=== PATIENT | male | born 1985 | race Caucasian/White ===

== ENCOUNTER → 2020-04-07 15:19 | Outpatient (BNVA) | payer OTHER, SELFPAY | DX: Z11.59 Encounter for screening for other viral diseases (principal) | CPT/HCPCS: 87635 ==

== ENCOUNTER 2020-11-19 01:48 | Emergency (ER) | payer OTHER, SELFPAY ==
[2020-11-19 02:08] VITALS: BP 161/103; PULSE 90; RESP 16; TEMP 36.9; O2SAT 97; BMI 31.5
--- NOTE | 2020-11-19 02:26 | W.ED.ABDPA2 ---
HPI - Abdominal Pain General: Chief Complaint: Abdominal Pain Stated Complaint: ab pain, back pain Time Seen by Provider: 11/19/20 02:03 Source: patient Mode of arrival: ambulatory Limitations: no limitations History of Present Illness: HPI narrative: 34-year-old male states he had right upper quadrant pain over the last day. He states its been constant nature and is much worse with palpation. States seems to be worse with food as well. States the pain radiates to his shoulder blade. He denies any history of any gallbladder issues. He has no history of any surgeries. He denies any fever. Has had some nausea no vomiting. Denies any diarrhea. MD elicited complaint: abdominal pain Associated Symptoms: Reports nausea; Denies chills, dysuria, fever(s) and vomiting Review of Systems Const: Denies: fever(s), chills, body aches or change in appetite Eyes: Denies: blurry vision or eye discomfort ENMT: Denies: throat pain or dental pain Card: Denies: chest pain Resp: Denies: dyspnea GI: Reports: abdominal pain and nausea; Denies: vomiting : Denies: dysuria Musc: Denies: neck pain or back pain Skin/Breast: Denies: rash Neuro: Denies: headache(s) Psych: Denies: depression Max/Lymph: Denies: easy bruising All/Imm: Denies: urticaria PFSH ED PFSH: Medical History (Updated 11/19/20 @ 04:13 by Orion Parikh MD) Anxiety Depression Hypertension, essential, benign Obesity (BMI 30-39.9) PTSD (post-traumatic stress disorder) Surgical History (Updated 10/26/20 @ 09:26 by Mushtaq Mckeon MD) No pertinent past surgical history Family History (Updated 10/26/20 @ 09:05 by Marisa Nelson LPN) Grandfather Lung disease Cancer Stroke Mother Diabetes Other CAD (coronary artery disease) Dementia Hypertension Social History (Updated 10/26/20 @ 09:05 by Marisa Nelson LPN) Smoking and tobacco status: current every day smoker cigarettes Packs smoked per day: 1 Years cigarettes smoked: 15 Alcohol intake: current Alcohol intake frequency: holidays/special occasions only Marital status: Number of children: 1 Number of grandchildren: 0 Current occupational status: employed Physical Exam Const: COMMON NORMALS: no acute distress, patient oriented x3 and healthy appearing HENMT: COMMON NORMALS: normocephalic and atraumatic HEAD & SCALP: normocephalic and atraumatic Eye: COMMON NORMALS: Equal, round and reactive pupils present and EOMs intact bilaterally PUPIL: Yes Equal, round and reactive pupils present Neck/C-Spine: COMMON NORMALS: full ROM and supple Chest: COMMONS NORMALS: normal inspection of the chest and normal palpation of entire chest wall Resp: COMMON NORMALS: normal respiratory effort, No retractions, No use of accessory muscles and clear to auscultation bilaterally AUSCULTATION: clear to auscultation bilaterally Cardio: COMMON NORMALS: regular rate, regular rhythm and No murmurs present (Cardio) RATE: regular rate RHYTHM: regular rhythm GI: COMMON NORMALS: Normal to inspection, nondistended, normoactive bowel sounds present, Soft to palpation and no masses PALPATION: Yes Soft to palpation and Yes Tenderness to palpation present (GI) Details: RUQ Extremity: COMMON NORMALS: normal to inspection and full ROM Neuro: COMMON NORMALS: patient oriented x3, moves all extremities and no focal motor deficits Psych: COMMON NORMALS: mental status grossly normal, Normal thought process present and cooperative THOUGHT PROCESS: Normal thought process present Skin: COMMON NORMALS: no rashes or lesions noted and no wounds GENERAL SKIN EXAM: no rashes or lesions noted Course Vital Signs: Vital signs: Vital Signs Temperature 98.4 F 11/19/20 02:08 Pulse Rate 83 11/19/20 04:07 Respiratory Rate 16 11/19/20 04:07 Blood Pressure 135/99 11/19/20 04:07 Pulse Oximetry 97 11/19/20 04:07 MDM - Abdominal Pain MDM Narrative: Medical decision making narrative: Patient presents here with abdominal pain. Could be gastritis. His ultrasound of his gallbladder and CT of his abdomen are all normal. Blood work is all normal as well. He is stable for discharge and follow-up with PCP and return if worsening. Lab Data: Labs: Lab Results 11/19/20 11/19/20 Range/Units 02:35 02:35 WBC 14.5 H (4.0-10.0) 10^3/ uL RBC 5.32 H (4.1-5.3) 10^6/u L Hgb 16.3 (11.7-16.6) g/dL Hct 49.1 (42.0-52.0) % MCV 92.3 (80-94) fL MCH 30.6 (28.0-34.0) pg MCHC 33.2 (30.0-36.0) g/dL RDW 12.6 (12.1-15.1) % Plt Count 230 (130-400) 10^3/c mm MPV 10.8 H (7.4-10.4) fL Neut % (Auto) 60.7 % Lymph % (Auto) 29.2 % [place] % (Auto) 7.3 % Eos % (Auto) 1.7 % Baso % (Auto) 0.6 % Neut # (Auto) 8.78 H (1.8-7.7) 10^3/u L Lymph # (Auto) 4.2 (0.8-4.8) 10^3/u L [place] # (Auto) 1.1 H (0.2-0.9) 10^3/u L Eos # (Auto) 0.3 (0.0-0.8) 10^3/u L Baso # (Auto) 0.1 (0.0-0.1) 10^3/u L Nucleated RBC % (a uto) 0 % Nucleated RBCs # 0.0 /100WBC Sodium 138 (136-145) mmol/L Potassium 4.3 (3.5-5.1) mmol/L Chloride 102 (98-107) mmol/L Carbon Dioxide 25 (22-29) mmol/L Anion Gap 15.3 (5-19) BUN 6 (6-20) mg/dL Creatinine 0.7 (0.7-1.2) mg/dL GFR Calculation 129.1 (90-130) mL/min Glucose 131 H (65-115) mg/dL Calculated Osmolal ity 285 (285-295) mOsm/k g Calcium 9.6 (8.5-10.5) mg/dL Total Bilirubin 0.3 (0.15-1.2) mg/dL AST 21 (0-40) U/L ALT 23 (0-41) U/L Alkaline Phosphata se 117 (40-130) IU/L Total Protein 7.1 (6.6-8.7) g/dL Albumin 4.6 (3.5-5.2) g/dL Globulin 2.5 (1.3-4.6) g/dL Lipase 72 H (13-60) U/L Imaging Data ^: CT Abd/Pel: Radiologist's impression: [address] [place] [address] CT Scan Report Signed Patient: Franko Iqbal Unit #: [id number] : 1985 Age/Sex: 34 / M ADM Date: 11/19/20 Loc: ER Room/Bed: Attending Dr: Ordering Provider/Ordering MD: Orion Parikh MD Date of Service: 11/19/20 Procedure(s): CT abdomen pelvis w con* [id number] Accession Number(s): [id number] Report Number: [id number] PROCEDURE INFORMATION: Exam: CT Abdomen And Pelvis With Contrast Exam date and time: 11/19/2020 2:50 AM Age: 34 years old Clinical indication: Abdominal pain; Epigastric; Additional info: Abd pain TECHNIQUE: Imaging protocol: Computed tomography of the abdomen and pelvis with contrast. Radiation optimization: All CT scans at this facility use at least one of these dose optimization techniques: automated exposure control; mA and/or kV adjustment per patient size (includes targeted exams where dose is matched to clinical indication); or iterative reconstruction. Contrast material: OMNI 300; Contrast volume: 95 ml; Contrast route: INTRAVENOUS (IV); COMPARISON: US gall bladder [id number] 11/19/2020 2:34 AM RADIATION DOSE METRICS: Total DLP (mGy-cm): 1799.39 FINDINGS: Liver: There is hypoattenuation of the hepatic parenchyma compatible with fatty infiltration. Gallbladder and bile ducts: Normal. No calcified stones. No ductal dilation. Pancreas: Normal. No ductal dilation. Spleen: A punctate calcifications seen within the spleen compatible with a calcified granuloma. The spleen is prominent measuring 16.3 cm craniocaudal dimension. Adrenal glands: Normal. No mass. Kidneys and ureters: There is a 1.7 cm intermediate attenuation cystic mass seen with along the lateral aspect of left kidney likely representing a small hemorrhagic cyst. Stomach and bowel: Unremarkable. No obstruction. No mucosal thickening. Appendix: No evidence of appendicitis. Intraperitoneal space: Unremarkable. No free air. No significant fluid collection. Vasculature: Unremarkable. No abdominal aortic aneurysm. Lymph nodes: There are mildly prominent celiac and periportal lymph nodes seen. Urinary bladder: Unremarkable as visualized. Reproductive: Unremarkable as visualized. Bones/joints: Unremarkable. No acute fracture. Soft tissues: Unremarkable. CT/CT abdomen pelvis w con* [id number] IMPRESSION: 1. Fatty infiltration of the liver 2. Splenomegaly 3. Mildly prominent celiac and periportal lymph nodes are seen that are below CT criteria for lymphadenopathy. 4. Intermediate attenuation cystic mass seen in the left kidney measuring 1.7 cm likely represents a small hemorrhagic cyst. No further workup recommended. COMMENTS: Consistent with the [place] [employer]'s Incidental Findings Committee white paper (J Am Dai Radiol 2018): Any incidental renal lesion less than 1 cm or classified as too small to characterize, or any incidental cystic renal lesion characterized as simple-appearing, is likely benign. No follow-up imaging is recommended for these lesions per consensus recommendations based on imaging criteria. Radiation Dose CTDIVOL = (mGy): DLP = 1799.39 (mGy-cm) Dictated By: Arslan Rosenberg MD Signed By: Arslan Rosenberg MD Signed Date/Time: 11/19/20 0410 US: Radiologist's impression: [address] [address] Ultrasound Report Signed Patient: Franko Iqbal Unit #: [id number] : 1985 Age/Sex: 34 / M ADM Date: 11/19/20 Loc: ER Room/Bed: Attending Dr: Ordering Provider/Ordering MD: Orion Parikh MD Date of Service: 11/19/20 Procedure(s): US gall bladder [id number] Accession Number(s): [id number] Report Number: [id number] PROCEDURE INFORMATION: Exam: US Abdomen, Limited; Right Upper Quadrant Exam date and time: 11/19/2020 2:26 AM Age: 34 years old Clinical indication: Abdominal pain; Acute; Patient HX: Npo since 9:30 pm yesterday; Additional info: Abd pain TECHNIQUE: Imaging protocol: US abdomen. Real time ultrasound with image documentation. Limited exam focused on the right upper quadrant. COMPARISON: No relevant prior studies available. FINDINGS: Liver: There is hyperechogenicity of the hepatic parenchyma compatible with fatty infiltration. The liver is prominent measuring 19.5 cm craniocaudal dimension. Gallbladder: Normal. No gallstones. There is no gallbladder wall thickening. Common bile duct: Normal. No stones. No dilation. Pancreas: Visualized pancreas is unremarkable. Right kidney: Normal. No mass. No hydronephrosis. Portal venous: Hepatopetal blood flow is seen within the portal vein with color Doppler and duplex waveform sonography. US/US gall bladder [id number] IMPRESSION: Hepatomegaly and fatty infiltration of the liver Dictated By: Arslan Rosenberg MD Signed By: Arslan Rosenberg MD Signed Date/Time: 11/19/20399 DD/ [id number] Discharge Plan Discharge Patient Disposition: Home Clinical Impression: Abdominal pain Qualifiers: Abdominal location: epigastric Qualified Code(s): R10.13 - Epigastric pain Condition: Stable Prescriptions: New Protonix 40 mg tablet,delayed release (DR/EC) 40 mg PO DAILY Qty: 60 RF: 0 No Action acetaminophen [Tylenol] 325 mg tablet 325 mg PO QID PRNRF: 0 sertraline 50 mg tablet 50 mg PO DAILY Qty: 30 RF: 1 lisinopril 10 mg tablet 10 mg PO DAILY Qty: 30 RF: 5 Discharge Orders: Discharge ED (Routine); Ordered 11/19/20 Ordered By: Orion Parikh Discharge Diet: Advance as tolerated Discharge Activity: Resume usual activity Patient Instructions: Abdominal Pain (ED) Coding Level of Care Code ED Hydroelectric Operator for Chg Fwd Exam Comprehensive
[2020-11-19 02:37] LABS: Basophils # 0.1 10^3/uL (0.0-0.1); Basophils % 0.6 %; Eosinophils # 0.3 10^3/uL (0.0-0.8); Eosinophils % 1.7 %; Hematocrit 49.1 % (42.0-52.0); Hemoglobin 16.3 g/dL (11.7-16.6); Lymphocytes # 4.2 10^3/uL (0.8-4.8); Lymphocytes % 29.2 %; Mean Corpuscular HGB Conc 33.2 g/dL (30.0-36.0); Mean Corpuscular Hemoglobin 30.6 pg (28.0-34.0); Mean Corpuscular Volume 92.3 fL (80-94); Mean Platelet Volume 10.8 fL (7.4-10.4); Monocytes # 1.1 10^3/uL (0.2-0.9); Monocytes % 7.3 %; Neutrophils # 8.78 10^3/uL (1.8-7.7); Neutrophils % 60.7 %; Nucleated Red Blood Cells % 0 %; Platelet Count 230 10^3/cmm (130-400); Red Blood Count 5.32 10^6/uL (4.1-5.3); Red Cell Distribution Width 12.6 % (12.1-15.1); White Blood Count 14.5 10^3/uL (4.0-10.0)
[2020-11-19] MEDS: sodium chloride 0.9% 1,000 ML 999 ML IV (02:41)
[2020-11-19] MEDS: ondansetron 2 mg/ML SDV 2 mL 4 MG IVP (02:41)
[2020-11-19 02:42] VITALS: RESP 18; O2SAT 98
[2020-11-19] MEDS: morphine 4 mg/mL SDV 1 mL IVP (02:42)
--- NOTE | 2020-11-19 02:50 | CTR_ITS ---
PROCEDURE INFORMATION: Exam: CT Abdomen And Pelvis With Contrast Exam date and time: 11/19/2020 2:50 AM Age: 34 years old Clinical indication: Abdominal pain; Epigastric; Additional info: Abd pain TECHNIQUE: Imaging protocol: Computed tomography of the abdomen and pelvis with contrast. Radiation optimization: All CT scans at this facility use at least one of these dose optimization techniques: automated exposure control; mA and/or kV adjustment per patient size (includes targeted exams where dose is matched to clinical indication); or iterative reconstruction. Contrast material: OMNI 300; Contrast volume: 95 ml; Contrast route: INTRAVENOUS (IV); COMPARISON: US gall bladder [id number] 11/19/2020 2:34 AM RADIATION DOSE METRICS: Total DLP (mGy-cm): 1799.39 FINDINGS: Liver: There is hypoattenuation of the hepatic parenchyma compatible with fatty infiltration. Gallbladder and bile ducts: Normal. No calcified stones. No ductal dilation. Pancreas: Normal. No ductal dilation. Spleen: A punctate calcifications seen within the spleen compatible with a calcified granuloma. The spleen is prominent measuring 16.3 cm craniocaudal dimension. Adrenal glands: Normal. No mass. Kidneys and ureters: There is a 1.7 cm intermediate attenuation cystic mass seen with along the lateral aspect of left kidney likely representing a small hemorrhagic cyst. Stomach and bowel: Unremarkable. No obstruction. No mucosal thickening. Appendix: No evidence of appendicitis. Intraperitoneal space: Unremarkable. No free air. No significant fluid collection. Vasculature: Unremarkable. No abdominal aortic aneurysm. Lymph nodes: There are mildly prominent celiac and periportal lymph nodes seen. Urinary bladder: Unremarkable as visualized. Reproductive: Unremarkable as visualized. Bones/joints: Unremarkable. No acute fracture. Soft tissues: Unremarkable. CT/CT abdomen pelvis w con* [id number] IMPRESSION: 1. Fatty infiltration of the liver 2. Splenomegaly 3. Mildly prominent celiac and periportal lymph nodes are seen that are below CT criteria for lymphadenopathy. 4. Intermediate attenuation cystic mass seen in the left kidney measuring 1.7 cm likely represents a small hemorrhagic cyst. No further workup recommended. COMMENTS: Consistent with the [employer]'s Incidental Findings Committee white paper (J Am Dai Radiol 2018): Any incidental renal lesion less than 1 cm or classified as too small to characterize, or any incidental cystic renal lesion characterized as simple-appearing, is likely benign. No follow-up imaging is recommended for these lesions per consensus recommendations based on imaging criteria. Radiation Dose CTDIVOL = (mGy): DLP = 1799.39 (mGy-cm)
[2020-11-19 02:58] LABS: Alanine Aminotransferase 23 U/L (0-41); Albumin Level 4.6 g/dL (3.5-5.2); Alkaline Phosphatase 117 IU/L (40-130); Blood Urea Nitrogen 6 mg/dL (6-20); Calcium 9.6 mg/dL (8.5-10.5); Carbon Dioxide 25 mmol/L (22-29); Chloride 102 mmol/L (98-107); Globulin 2.5 g/dL (1.3-4.6); Glomerular Filtration Rate 129.1 mL/min (90-130); Glucose 131 mg/dL (65-115); Lipase 72 U/L (13-60); Osmolality Calculated 285 mOsm/kg (285-295); Sodium 138 mmol/L (136-145); Total Bilirubin 0.3 mg/dL (0.15-1.2); Total Protein 7.1 g/dL (6.6-8.7)
[2020-11-19 03:05] LABS: Anion Gap 15.3 (5-19); Aspartate Amino Transferase 21 U/L (0-40); Potassium 4.3 mmol/L (3.5-5.1)
[2020-11-19 03:13] LABS: Slide Review Slide Review Perform
[2020-11-19] MEDS: iohexol 300 mg/mL 100 mL Btl IV (03:22)
[2020-11-19 04:07] VITALS: BP 135/99; PULSE 83; RESP 16; O2SAT 97
[2020-11-19 04:23] VITALS: BP 133/82; PULSE 74; RESP 17; TEMP 36.9; O2SAT 98
== END 2020-11-19 04:24 | disposition home or self-care (01) ==
PROVIDERS: Emergency Provider Emergency Medicine
DX: R10.13 Epigastric pain (principal); I10 Essential (primary) hypertension; F17.210 Nicotine dependence, cigarettes, uncomplicated
CPT/HCPCS: 74177; 76705; 80053; 83690; 85025; 96361; 96374; 96375; 99283; J2270; J2405; J7030; Q9967

== ENCOUNTER 2020-11-21 04:40 | Emergency (ER) | payer OTHER, SELFPAY ==
[2020-11-21 04:44] VITALS: BP 162/104; PULSE 93; RESP 18; TEMP 36.7; O2SAT 99; BMI 32.5
--- NOTE | 2020-11-21 04:49 | W.ED.GENADLT ---
HPI - General Adult General: Chief complaint: Abdominal Pain Stated complaint: abdomen pain Time Seen by Provider: 11/21/20 04:45 History of Present Illness: HPI narrative: This patient is a 34-year-old male who presents to the emergency department with complaint of epigastric pain. Patient was seen 2 days ago for the same with negative evaluation. Patient had altered and CT scan negative for any acute findings. Patient states he only had any of soup today. Patient is agreeable to GI cocktail. Patient was placed on Protonix at discharge just few days ago. Quality: burning and sharp Pain Consistency: constant Associated symptoms: Deny chest pain, dyspnea, headache(s), nausea, rash, palpitations or vomiting Review of Systems General: Reports: 10 or more systems reviewed and unremarkable except in HPI and below Const: Denies: fever(s), chills, body aches or fatigue Eyes: Denies: change in vision or blurry vision ENMT: Denies: throat pain, hoarseness or mouth pain Card: Denies: chest pain, palpitations, irregular heart rhythm, edema, swelling of feet/ankles or lightheadedness Resp: Denies: dyspnea, productive cough, non-productive cough, wheezing or pain on inspiration GI: Reports: abdominal pain; Denies: nausea or vomiting : Denies: flank pain, dysuria, urinary frequency, urinary urgency or urinary hesitancy Musc: Denies: neck pain, back pain, extremity pain, extremity swelling, joint pain, joint swelling, joint redness, joint warmth or limited range of motion Skin/Breast: Denies: rash, pruritus, erythema or skin tenderness Neuro: Denies: headache(s), numbness in extremities or weakness in extremities Psych: Denies: anxiety or depression PFSH ED PFSH: Medical History Anxiety Depression Hypertension, essential, benign Obesity (BMI 30-39.9) PTSD (post-traumatic stress disorder) Surgical History No pertinent past surgical history Family History Grandfather Lung disease Cancer Stroke Mother Diabetes Other CAD (coronary artery disease) Dementia Hypertension Social History Smoking and tobacco status: current every day smoker cigarettes Packs smoked per day: 1 Years cigarettes smoked: 15 Alcohol intake: current Alcohol intake frequency: holidays/special occasions only Marital status: Number of children: 1 Number of grandchildren: 0 Current occupational status: employed Physical Exam Const: COMMON NORMALS: no acute distress, average body habitus, patient oriented x3, no limitations, healthy appearing, alert and well nourished HENMT: COMMON NORMALS: normocephalic, atraumatic, hearing grossly normal bilaterally, external ears normal, EAC's normal, TM's normal bilaterally, Normal external nose present, Normal nasal mucous membranes and turbinates present, moist oral mucous membranes, oropharynx normal, dentition normal and gingiva normal HEAD & SCALP: normocephalic and atraumatic NOSE: Normal external nose present and Normal nasal mucous membranes and turbinates present EXTERNAL EAR: Yes external ears normal EXTERNAL AUDITORY CANAL: EAC's normal TYMPANIC MEMBRANE: TM's normal bilaterally Neck/C-Spine: COMMON NORMALS: full ROM, no lymphadenopathy, supple, no meningeal signs, no JVD, Thyroid normal and No carotid bruits THYROID: Thyroid normal Chest: COMMONS NORMALS: normal inspection of the chest, normal palpation of entire chest wall, normal inspection of the breasts and normal palpation of the breasts Breast/axilla inspection: Yes normal inspection of the breasts BREAST/AXILLA PALPATION: Yes normal palpation of the breasts Resp: COMMON NORMALS: normal respiratory effort, No retractions, No use of accessory muscles, clear to auscultation bilaterally and percussion normal AUSCULTATION: clear to auscultation bilaterally PERCUSSION: percussion normal Cardio: COMMON NORMALS: no JVD, regular rate, regular rhythm, S1 normal heart sound present, S2 normal heart sound present, No gallops present (Cardio), No clicks present (Cardio), No murmurs present (Cardio), No rub (Cardio) and Peripheral pulses 2+ throughout RATE: regular rate RHYTHM: regular rhythm HEART SOUNDS: S1 normal heart sound present and S2 normal heart sound present PERIPHERAL PULSES: Peripheral pulses 2+ throughout GI: COMMON NORMALS: Normal to inspection, nondistended, normoactive bowel sounds present, Soft to palpation, non-tender, No hepatosplenomegaly present, no masses and no bruits PALPATION: Yes Soft to palpation and Yes No hepatosplenomegaly present : COMMON NORMALS: Yes no CVA tenderness BLADDER/KIDNEY EXAM: Yes no CVA tenderness Back/Pelvis: COMMON NORMALS: no CVA tenderness, thoracic and lumbar spine normal to inspection, no thoracic nor lumbar tenderness, thoraco-lumbar ROM normal and straight leg raise negative bilaterally Extremity: COMMON NORMALS: normal to inspection, full ROM, capillary refill normal, no joint enlargement, no clubbing, cyanosis or edema, no calf tenderness and no pedal edema Neuro: COMMON NORMALS: patient oriented x3 SENSORIUM/ORIENTATION: Yes alert MENINGEAL SIGNS: Yes no meningeal signs Course Reevaluation(s): Reevaluation #1: Negative evaluation for any acute findings. Patient states he has had this epigastric pain for some time. States the Protonix is not helping. Discussed with patient about options. Patient will be referred to see GI specialist. Patient should continue home medications and follow-up as instructed with GI specialist for further evaluation and possible EGD. Time: 05:36 Vital Signs: Vital signs: Vital Signs Temperature 98.1 F 11/21/20 04:44 Pulse Rate 93 11/21/20 04:44 Respiratory Rate 18 11/21/20 04:44 Blood Pressure 162/104 11/21/20 04:44 Pulse Oximetry 99 11/21/20 04:44 MDM - General Adult MDM Narrative: Medical decision making narrative: Patient had negative evaluation in the emergency department. Patient had significant medical evaluation in the emergency department 2 days ago which included ultrasound and CT scan and laboratory values negative for any acute findings. Patient presented with similar complaints today and states has been going on for weeks. Patient given a GI cocktail with minimal results. Laboratory values drawn back unchanged. Discussed sling with patient options. He will be referred to GI specialist. For outpatient follow-up Medical Records: Attestation: I reviewed the patient's medical records. Lab Data: Attestation: I reviewed the patient's lab results. Labs: Lab Results 11/21/20 Range/Units 05:04 Sodium 137 (136-145) mmol/L Potassium 3.8 (3.5-5.1) mmol/L Chloride 102 (98-107) mmol/L Carbon Dioxide 21 L (22-29) mmol/L Anion Gap 17.8 (5-19) BUN 8 (6-20) mg/dL Creatinine 0.8 (0.7-1.2) mg/dL GFR Calculation 110.7 (90-130) mL/min Glucose 186 H (65-115) mg/dL Calculated Osmolal ity 287 (285-295) mOsm/k g Calcium 9.2 (8.5-10.5) mg/dL Total Bilirubin 0.2 (0.15-1.2) mg/dL AST 20 (0-40) U/L ALT 24 (0-41) U/L Alkaline Phosphata se 136 H (40-130) IU/L Total Protein 6.9 (6.6-8.7) g/dL Albumin 4.2 (3.5-5.2) g/dL Globulin 2.7 (1.3-4.6) g/dL Lipase 79 H (13-60) U/L Discharge Plan Discharge Patient Disposition: Home Clinical Impression: Abdominal pain, epigastric Condition: Stable Prescriptions: No Action acetaminophen [Tylenol] 325 mg tablet 325 mg PO QID PRNRF: 0 sertraline 50 mg tablet 50 mg PO DAILY Qty: 30 RF: 1 lisinopril 10 mg tablet 10 mg PO DAILY Qty: 30 RF: 5 Protonix 40 mg tablet,delayed release (DR/EC) 40 mg PO DAILY Qty: 60 RF: 0 Discharge Orders: Discharge ED (Routine); Ordered 11/21/20 Ordered By: Isai Rivas Referrals: Mg Casanova MD [Physician] - Discharge Diet: Advance as tolerated Discharge Activity: Resume usual activity Patient Instructions: Abdominal Pain (ED), Opioid Safety Activity Restrictions/Additional Instructions: Encourage p.o. fluids. Continue all home medications. Follow-up with GI specialist as instructed. Coding Level of Care Code ED Compliance Specialist for Chg Fwd Exam Comprehensive
[2020-11-21] MEDS: lidocaine 2% viscous 15 ML, aluminum-mag hydrox-simethicon 30 ML, sucralfate oral liq 1 GM PO (04:54)
[2020-11-21] MEDS: ondansetron 4 MG Tablet PO (04:55)
[2020-11-21 05:10] LABS: Basophils # 0.1 10^3/uL (0.0-0.1); Basophils % 0.6 %; Eosinophils # 0.3 10^3/uL (0.0-0.8); Eosinophils % 2.1 %; Hemoglobin 16.5 g/dL (11.7-16.6); Lymphocytes % 37.8 %; Mean Corpuscular HGB Conc 33.7 g/dL (30.0-36.0); Mean Corpuscular Hemoglobin 30.7 pg (28.0-34.0); Mean Corpuscular Volume 91.2 fL (80-94); Mean Platelet Volume 10.6 fL (7.4-10.4); Monocytes % 6.1 %; Neutrophils # 8.39 10^3/uL (1.8-7.7); Neutrophils % 52.8 %; Nucleated Red Blood Cells % 0 %; Platelet Count 253 10^3/cmm (130-400); Red Blood Count 5.37 10^6/uL (4.1-5.3); Red Cell Distribution Width 12.6 % (12.1-15.1); White Blood Count 15.9 10^3/uL (4.0-10.0)
--- NOTE | 2020-11-21 05:11 | PC.NURSE ---
Labs drawn and taken to lab; no IV per MD.
[2020-11-21 05:30] LABS: Alanine Aminotransferase 24 U/L (0-41); Albumin Level 4.2 g/dL (3.5-5.2); Alkaline Phosphatase 136 IU/L (40-130); Anion Gap 17.8 (5-19); Aspartate Amino Transferase 20 U/L (0-40); Blood Urea Nitrogen 8 mg/dL (6-20); Calcium 9.2 mg/dL (8.5-10.5); Carbon Dioxide 21 mmol/L (22-29); Chloride 102 mmol/L (98-107); Creatinine Clr Calc Pharmacy 151.5211; Globulin 2.7 g/dL (1.3-4.6); Glomerular Filtration Rate 110.7 mL/min (90-130); Glucose 186 mg/dL (65-115); Lipase 79 U/L (13-60); Osmolality Calculated 287 mOsm/kg (285-295); Potassium 3.8 mmol/L (3.5-5.1); Sodium 137 mmol/L (136-145); Total Bilirubin 0.2 mg/dL (0.15-1.2); Total Protein 6.9 g/dL (6.6-8.7)
[2020-11-21 05:40] LABS: Slide Review Slide Review Perform
[2020-11-21 05:51] VITALS: BP 130/90; PULSE 88; RESP 18; O2SAT 94
== END 2020-11-21 05:53 | disposition home or self-care (01) ==
PROVIDERS: Emergency Provider Emergency Medicine
DX: R10.13 Epigastric pain (principal); I10 Essential (primary) hypertension; F17.210 Nicotine dependence, cigarettes, uncomplicated
CPT/HCPCS: 80053; 83690; 85025; 99283; Q0162

== ENCOUNTER → 2020-11-26 12:23 | Outpatient (BNVA) | payer OTHER, SELFPAY | PROVIDERS: Visit Provider Surgery | DX: K21.9 Gastro-esophageal reflux disease without esophagitis (principal); R10.13 Epigastric pain; Z20.822 Contact with and (suspected) exposure to COVID-19 | CPT/HCPCS: 87635 ==

== ENCOUNTER 2020-11-28 09:10 | Day surgery (SDC) | payer SELFPAY ==
--- NOTE | 2020-11-28 09:25 | ANES.PREANE2 ---
Pre-Anesthetic Assessment Pre-Anesthetic Assessment: Height/Weight: Height 1.78 m Weight 92.079 kg Preop Diagnosis: Epigastric pain Proposed Procedure: Operation Date: 11/28/20 10:45 Proposed Procedures p EGD 95078 r10.13 k21.9(Not Applicable) - Mg Casanova MD Familial anesthetic complications: none Last intake: > 8 hrs Social: Social History: Tobacco and No alcohol Exam: Pre-Anes Outpt Exam: alert, oriented x 3, clear to auscultation bilaterally and regular rate & rhythm Airway: Cervical ROM: WNL MP: 3 Dentition: Chipped (4 chipped te3eth) CV/HEM: CV/HEM: HTN Hepatic: Comments: fatty liver GI: GI: GERD Neuropsych: Neuropsych: Depression Anesthetic Plan: ASA status: 2 Anesthesia: MAC Risk of > 500 ml blood loss (7ml/kg in children): No PFSH Anesthesia PFSH: Medical History (Updated 11/27/20 @ 00:01 by ) Anxiety Chronic GERD Depression Hypertension, essential, benign PTSD (post-traumatic stress disorder) Surgical History No pertinent past surgical history Family History Grandfather Lung disease Cancer Stroke Mother Diabetes Other CAD (coronary artery disease) Dementia Hypertension Social History Smoking and tobacco status: current every day smoker cigarettes Packs smoked per day: 1 Years cigarettes smoked: 15 Alcohol intake: current Alcohol intake frequency: holidays/special occasions only Marital status: Number of children: 1 Number of grandchildren: 0 Current occupational status: employed Data Anesthesia Cardiac Studies: No Data to Display
[2020-11-28 09:47] VITALS: BP 142/98; PULSE 135; RESP 22; TEMP 36.4; O2SAT 98
[2020-11-28] MEDS: midazolam 1 mg/mL INJ 2 mL 2 MG IVP (10:17)
[2020-11-28] MEDS: sodium chloride 0.9% 1,000 ML 30 ML IV (10:24)
[2020-11-28 11:51] VITALS: BP 127/92; PULSE 121; RESP 16; TEMP 36.9; O2SAT 93
--- NOTE | 2020-11-28 11:55 | ANE.PACU2 ---
Inpatient post-anesthesia follow up: Airway intact: Yes Vital signs: Temperature 97.5 F Pulse Rate 135 Respiratory Rate 22 Blood Pressure 142/98 Pulse Oximetry 98 Oxygen Delivery Me thod Room Air Oxygen Flow Rate Fraction of Inspir ed Oxygen Hydration adequate: Yes Nausea and vomiting: No Pain level: 1 Mental status: Baseline
[2020-11-29 06:20] LABS: H. Pylori / CLO Test Negative
--- NOTE | 2020-11-30 07:15 | W.PM.OPSUD ---
Surgery/Procedure H&P Update DATE OF PROCEDURE: November 28, 2020 DATE H&P PERFORMED: 11/26/20 H&P UPDATE INFORMATION: I have reviewed H&P completed within last 30 days, I have examined patient prior to procedure and No changes to prior documentation PREOP DIAGNOSIS: Epigastric pain PRIMARY INDICATION FOR PROCEDURE: The same PLANNED PROCEDURE: Operation Date: 11/28/20 10:45 Proposed Procedures p EGD 45569 r10.13 k21.9(Not Applicable) - Mg Casanova MD
== END 2020-11-28 12:18 | disposition home or self-care (01) ==
PROVIDERS: Visit Provider Surgery
PROC: 0DJ08ZZ Inspection of Upper Intestinal Tract, Via Natural or Artificial Opening Endoscopic (ICD-10-PCS; CPT 43235; principal; 2020-11-28 10:45)
DX: R10.13 Epigastric pain (principal); K21.00 Gastro-esophageal reflux disease with esophagitis, without bleeding; K29.70 Gastritis, unspecified, without bleeding; I10 Essential (primary) hypertension; F32.9 Major depressive disorder, single episode, unspecified; F17.210 Nicotine dependence, cigarettes, uncomplicated
CPT/HCPCS: 43239; 87077; 96360; 96361; 96374; J2250; J2704; J7030

== ENCOUNTER 2023-07-25 12:25 | Emergency (ER) | payer OTHER, SELFPAY ==
[2023-07-25 12:34] VITALS: BP 164/105; PULSE 135; RESP 18; TEMP 36.7; O2SAT 96
--- NOTE | 2023-07-25 13:02 | XRR_ITS ---
PROCEDURE INFORMATION: Exam: XR Abdomen Exam date and time: 07/25/2023 1:15 PM Age: 37 years old Clinical indication: Abdominal pain; Patient HX: Epigastric pain, llq pain; Cad; HTN TECHNIQUE: Imaging protocol: Radiologic exam of the abdomen. Views: 2 Views. Upright and supine views. COMPARISON: CT abdomen pelvis w con* [id number] 11/19/2020 3:18 AM FINDINGS: Gastrointestinal tract: Normal. No bowel dilation. Low stool burden. Intraperitoneal space: Normal. No free air. Bones/joints: Mild scoliosis. XR/XR acute abdomen series [id number] IMPRESSION: No acute findings.
--- NOTE | 2023-07-25 13:35 | ED_ITS ---
HPI - Abdominal Pain 2 General: Chief Complaint: Abdominal Pain Stated Complaint: abd pain Time Seen by Provider: 07/25/23 13:32 History of Present Illness: 37-year-old man who presents to the [facility] room with abdominal pain. He has been having issues with this for some time this particular episodes been for over a month he says. He was seen once for upper abdominal pain several weeks ago at another ER and had a CT scan that was inconclusive. He says pain has been back over the last couple of days and now he has it in his left lower quadrant. He called the [facility] and they told him to come to the emergency room. He has had some nausea and some dry heaves. No chest pain. No cough. No fevers. No dysuria. Review of Systems 2 Narrative: Constitutional symptoms: Negative except as documented in HPI. Skin symptoms: Negative except as documented in HPI. Eye symptoms: Negative except as documented in HPI. ENMT symptoms: Negative except as documented in HPI. Respiratory symptoms: Negative except as documented in HPI. Cardiovascular symptoms: Negative except as documented in HPI. Gastrointestinal symptoms: Negative except as documented in HPI. Genitourinary symptoms: Negative except as documented in HPI. Musculoskeletal symptoms: Negative except as documented in HPI. Neurologic symptoms: Negative except as documented in HPI. Psychiatric symptoms: Negative except as documented in HPI. Endocrine symptoms: Negative except as documented in HPI. PFSH ED 2 PFSH: Medical History Anxiety Chronic GERD Depression Hypertension, essential, benign PTSD (post-traumatic stress disorder) Surgical History No pertinent past surgical history Family History Grandfather Lung disease Cancer Stroke Mother Diabetes Other CAD (coronary artery disease) Dementia Hypertension Social History Smoking and tobacco/nicotine status: current every day tobacco/nicotine user cigarettes Packs smoked per day: 1 Years cigarettes smoked: 15 Alcohol intake: current Alcohol intake frequency: holidays/special occasions only Substance/Drug Use: never Marital status: Number of children: 1 Number of grandchildren: 0 Current occupational status: employed Physical Exam 2 Narrative: EXAM NARRATIVE: General: Alert, no acute distress. Skin: Warm, dry. Head: Normocephalic, atraumatic. Neck: Supple, trachea midline. Eye: Extraocular movements are intact. Ears, nose, mouth and throat: mucosa moist. Cardiovascular: Regular, Normal peripheral perfusion. Respiratory: Lungs are clear to auscultation, respirations are non-labored, breath sounds are equal, Symmetrical chest wall expansion. Gastrointestinal: Soft, some tenderness in his left lower quadrant, Non distended, Normal bowel sounds. Musculoskeletal: Normal ROM, no deformity. Neurological: Alert and oriented, No focal neurological deficit observed. Psychiatric: Cooperative, appropriate mood & affect. Course 2 Vital Signs: Vital signs: Vital Signs Temperature 98.0 F 07/25/23 12:34 Pulse Rate 128 H 07/25/23 16:09 Respiratory Rate 18 07/25/23 12:34 Blood Pressure 164/105 07/25/23 12:34 Pulse Oximetry 94 07/25/23 16:09 Oxygen Delivery Me thod Room Air 07/25/23 12:34 MDM - Abdominal Pain Medical Decision Making Medical decision making: Differential diagnosis including but not limited to and based on the above HPI, review of systems and physical exam: Concern would be for diverticulitis, kidney stones, gastroenteritis, CT scan and basic lab work were ordered. CT scan showed fatty liver and had concern for a left renal mass. Ultrasound was ordered and showed a solid mass that is concerning for renal cell carcinoma. I spoke with the urologist out of [place]. He recommends follow-up soon. Spoke with the patient and he will either follow-up with [place] by otology and urology or with the [facility] Reexamination: Patient is comfortable at discharge. No acute distress. No increased work of breathing. No altered mental status. Lab Data 07/25/23 13:45 07/25/23 13:45 Labs/Radiology: Radiology Impressions Chest/Abdomen X-ray 07/25/23 13:02 IMPRESSION: No acute findings. Abdomen/Pelvis CT 07/25/23 13:36 IMPRESSION: 1. Enlarging left renal lesion is not clearly cystic. Recommend further evaluation of it with ultrasound or contrast-enhanced MRI. 2. Increased diffuse fatty infiltration of the liver. New moderate hepatomegaly. 3. Unchanged rex hepatis, periceliac, and gastrohepatic lymphadenopathy, but increased bilateral iliac lymphadenopathy. This is still very likely to be reactive, but neoplasm can not be excluded. 4. Additional details as above. COMMENTS: Consistent with the [employer]'s Incidental Findings Committee white paper (J Am Dai Radiol 2018): Any incidental renal lesion less than 1 cm or classified as too small to characterize, or any incidental cystic renal lesion characterized as simple-appearing, is likely benign. No follow-up imaging is recommended for these lesions per consensus recommendations based on imaging criteria. Renal Ultrasound 07/25/23 15:22 IMPRESSION: 1. The left renal lesion in question appears to be solid measuring 2.1 cm x 2.2 cm by 2.2 cm. Therefore, it should be considered renal cell carcinoma until proven otherwise. 2. Normal right kidney and unremarkable urinary bladder. Laboratory Results WBC 14.28 10^3/uL (3.29-11.43) H 07/25/23 13:45 RBC 5.68 10^6/uL (3.85-5.65) H 07/25/23 13:45 Hgb 16.90 g/dL (11.27-16.99) 07/25/23 13:45 Hct 50.0 % (37-53) 07/25/23 13:45 MCV 88.0 fl (82-101) 07/25/23 13:45 MCH 29.8 pg (27-33) 07/25/23 13:45 MCHC 33.8 g/dL (30-55) 07/25/23 13:45 RDW 11.8 % (12.1-15.1) L 07/25/23 13:45 Plt Count 324 10^3/cmm (157-399) 07/25/23 13:45 MPV 10.2 fL (7.4-10.4) 07/25/23 13:45 Neut % (Auto) 55.5 % 07/25/23 13:45 Lymph % (Auto) 32.3 % 07/25/23 13:45 Henry % (Auto) 7.4 % 07/25/23 13:45 Eos % (Auto) 2.0 % 07/25/23 13:45 Baso % (Auto) 1.0 % 07/25/23 13:45 Neut # (Auto) 7.94 10^3/uL (1.8-7.7) H 07/25/23 13:45 Lymph # (Auto) 4.6 10^3/uL (0.8-4.8) 07/25/23 13:45 Henry # (Auto) 1.1 10^3/uL (0.2-0.9) H 07/25/23 13:45 Eos # (Auto) 0.3 10^3/uL (0.0-0.8) 07/25/23 13:45 Baso # (Auto) 0.1 10^3/uL (0.0-0.1) 07/25/23 13:45 Nucleated RBC % (auto) 0 % 07/25/23 13:45 Nucleated RBCs # 0.0 /100WBC 07/25/23 13:45 Sodium 133 mmol/L (136-145) L 07/25/23 13:45 Potassium 4.7 mmol/L (3.5-5.1) 07/25/23 13:45 Chloride 96 mmol/L (98-107) L 07/25/23 13:45 Carbon Dioxide 23 mmol/L (22-29) 07/25/23 13:45 Anion Gap 18.7 (5-19) 07/25/23 13:45 BUN 19 mg/dL (6-20) 07/25/23 13:45 Creatinine 0.7 mg/dL (0.7-1.2) 07/25/23 13:45 GFR Calculation 126.9 mL/min (90-130) 07/25/23 13:45 Glucose 223 mg/dL (65-115) H 07/25/23 13:45 Calculated Osmolality 285 mOsm/kg (285-295) 07/25/23 13:45 Lactic Acid 2.3 mmol/L (0.5-2.2) H 07/25/23 13:45 Calcium 9.7 mg/dL (8.5-10.5) 07/25/23 13:45 Total Bilirubin 0.6 mg/dL (0.15-1.2) 07/25/23 13:45 AST 64 U/L (0-40) H 07/25/23 13:45 ALT 119 U/L (0-41) H 07/25/23 13:45 Alkaline Phosphatase 127 U/L (40-130) 07/25/23 13:45 C-Reactive Protein 13.8 mg/L (0.0-4.9) H 07/25/23 13:45 Total Protein 7.9 g/dL (6.6-8.7) 07/25/23 13:45 Albumin 4.6 g/dL (3.5-5.2) 07/25/23 13:45 Globulin 3.3 g/dL (1.3-4.6) 07/25/23 13:45 Urine Color Yellow (Yellow) 07/25/23 15:10 Urine Appearance Clear (CLEAR) 07/25/23 15:10 Urine pH 6 (5-7) 07/25/23 15:10 Ur Specific [place] 1.010 (1.005-1.030) 07/25/23 15:10 Urine Protein Neg (Negative) 07/25/23 15:10 Urine Glucose (UA) Norm (Normal) 07/25/23 15:10 Urine Ketones Negative (Negative) 07/25/23 15:10 Urine Blood Neg (Negative) 07/25/23 15:10 Urine Nitrate Negative (Negative) 07/25/23 15:10 Urine Bilirubin Neg (Negative) 07/25/23 15:10 Urine Urobilinogen Norm mg/dL (Negative) 07/25/23 15:10 Ur Leukocyte Esterase Negative (Negative) 07/25/23 15:10 Urine RBC None /hpf (0-2) 07/25/23 15:10 Urine WBC Rare /hpf (0-5) 07/25/23 15:10 Ur Squamous Epith Cells None /hpf (0-5) 07/25/23 15:10 Amorphous Sediment Not Reportable 07/25/23 15:10 Urine Bacteria Trace /hpf (NONE) 07/25/23 15:10 All radiology interpretation(s) finalized by discharge Discharge Plan Discharge Patient Disposition: Home Clinical Impression: Abdominal pain, Kidney mass Condition: Stable Prescriptions: New tramadol 50 mg tablet 50 mg PO Q8H PRN (Reason: pain) Qty: 20 0RF No Action acetaminophen [Tylenol] 325 mg tablet 650 mg PO QID PRN (Reason: Pain) hydroxyzine HCl 50 mg Tablet 50 mg PO TID PRN (Reason: Anxiety) amlodipine 5 mg Tablet 5 mg PO DAILY triamcinolone acetonide 0.1 % Cream 1 applic TOPICAL TID PRN (Reason: Rash) Pepto-Bismol 262 mg/15 mL Suspension 524 mg PO QID PRN (Reason: Indigestion) nicotine 21 mg/24 hr Patch 24 Hour 1 patch TRANSDERMAL Q24H diclofenac sodium 75 mg Tablet,Delayed Release (Dr/Ec) 75 mg PO BID atomoxetine 25 mg Capsule 50 mg PO QAM nicotine (polacrilex) 2 mg Lozenge 2 mg BUCCAL Q2H PRN (Reason: SESSATION) cholecalciferol (vitamin D3) 50 mcg (2,000 unit) Capsule 50 mcg PO DAILY Chlorophyll (with alfalfa) 20-100 mg Tablet 1 tab PO BID duloxetine 40 mg Capsule,Delayed Release(Dr/Ec) 40 mg PO DAILY Discharge Orders: Discharge ED (Routine); Ordered 07/25/23 Ordered By: Vivian Zarate Referrals: Fernie Rodriguez [Referring] - (Call for an appointment with Dr. [facility] seen on your kidney. This needs to be done very soon. You have been screened and evaluated and felt safe for discharge. Health conditions do change or evolve sometimes and as such it is important that you follow up with your Primary Doctor to be re checked, 3-5 days is a general good time frame for follow up. You are always welcome to return to the ED for re assessment if your symptoms are worsening or you have new concerns) Discharge Diet: Usual diet Patient Instructions: Abdominal Pain (ED), Opioid Safety, Pain Management Coding Level of Care Code ED Radiologist Chief Of Breast Imaging for Kenia Ferreira
--- NOTE | 2023-07-25 13:36 | CTR_ITS ---
PROCEDURE INFORMATION: Exam: CT Abdomen And Pelvis With Contrast Exam date and time: 07/25/2023 2:14 PM Age: 37 years old Clinical indication: Other: Blood in stool; Additional info: Left lower quadrant abdominal pain TECHNIQUE: Imaging protocol: Computed tomography of the abdomen and pelvis with contrast. Radiation optimization: All CT scans at this facility use at least one of these dose optimization techniques: automated exposure control; mA and/or kV adjustment per patient size (includes targeted exams where dose is matched to clinical indication); or iterative reconstruction. Contrast material: OMNI 350; Contrast volume: 100 ml; Contrast route: INTRAVENOUS (IV); COMPARISON: CT abdomen pelvis w con* [id number] 11/19/2020 3:18 AM RADIATION DOSE METRICS: Total DLP (mGy-cm): 959.4 FINDINGS: Lungs: Clear lung bases. Liver: Increased diffuse fatty infiltration of the liver. New moderate hepatomegaly. Otherwise, unremarkable. Gallbladder and bile ducts: Normal. No calcified stones. No ductal dilation. Pancreas: Normal. No ductal dilation. Spleen: Normal. No splenomegaly. Adrenal glands: Normal. No mass. Kidneys and ureters: A 2.5 cm exophytic lesion from the lateral left kidney previously measured 1.7 cm. It is not clearly a simple cyst as its density is 90 Hounsfield units. This could be a slowly enlarging solid neoplasm. This should be further evaluated with ultrasound or contrast-enhanced MRI. Otherwise, unremarkable. Stomach and bowel: A few diverticula from the colon. No diverticulitis. Otherwise, unremarkable. Appendix: No evidence of appendicitis. Intraperitoneal space: Unremarkable. No free air. No significant fluid collection. Vasculature: Unchanged tiny amount of arterial calcification. Otherwise, unremarkable. Lymph nodes: Unchanged mild rex hepatis, gastrohepatic ligament, and periceliac lymphadenopathy. Increased bilateral inguinal lymphadenopathy. No other lymphadenopathy. Urinary bladder: Unremarkable as visualized. Reproductive: Unremarkable as visualized. Bones/joints: Minimal scoliosis with minimal and mild multilevel spondylosis. Unchanged. Otherwise, unremarkable. Soft tissues: Unremarkable body wall. Otherwise, unremarkable soft tissues. CT/CT abdomen pelvis w con* [id number] IMPRESSION: 1. Enlarging left renal lesion is not clearly cystic. Recommend further evaluation of it with ultrasound or contrast-enhanced MRI. 2. Increased diffuse fatty infiltration of the liver. New moderate hepatomegaly. 3. Unchanged rex hepatis, periceliac, and gastrohepatic lymphadenopathy, but increased bilateral iliac lymphadenopathy. This is still very likely to be reactive, but neoplasm can not be excluded. 4. Additional details as above. COMMENTS: Consistent with the [employer]'s Incidental Findings Committee white paper (J Am Dai Radiol 2018): Any incidental renal lesion less than 1 cm or classified as too small to characterize, or any incidental cystic renal lesion characterized as simple-appearing, is likely benign. No follow-up imaging is recommended for these lesions per consensus recommendations based on imaging criteria.
[2023-07-25 13:56] LABS: Basophils # 0.1 10^3/uL (0.0-0.1); Eosinophils # 0.3 10^3/uL (0.0-0.8); Lymphocytes # 4.6 10^3/uL (0.8-4.8); Lymphocytes % 32.3 %; Mean Corpuscular HGB Conc 33.8 g/dL (30-55); Mean Corpuscular Hemoglobin 29.8 pg (27-33); Mean Platelet Volume 10.2 fL (7.4-10.4); Monocytes # 1.1 10^3/uL (0.2-0.9); Monocytes % 7.4 %; Neutrophils # 7.94 10^3/uL (1.8-7.7); Neutrophils % 55.5 %; Nucleated Red Blood Cells % 0 %; Platelet Count 324 10^3/cmm (157-399); Red Blood Count 5.68 10^6/uL (3.85-5.65); Red Cell Distribution Width 11.8 % (12.1-15.1); White Blood Count 14.28 10^3/uL (3.29-11.43)
[2023-07-25 14:03] VITALS: PULSE 129; O2SAT 95
[2023-07-25 14:11] LABS: Lactic Sepsis W/Reflex 2.3 mmol/L (0.5-2.2)
[2023-07-25 14:17] LABS: Alanine Aminotransferase 119 U/L (0-41); Albumin Level 4.6 g/dL (3.5-5.2); Alkaline Phosphatase 127 U/L (40-130); Anion Gap 18.7 (5-19); Aspartate Amino Transferase 64 U/L (0-40); Blood Urea Nitrogen 19 mg/dL (6-20); C Reactive Protein 13.8 mg/L (0.0-4.9); Calcium 9.7 mg/dL (8.5-10.5); Carbon Dioxide 23 mmol/L (22-29); Chloride 96 mmol/L (98-107); Globulin 3.3 g/dL (1.3-4.6); Glomerular Filtration Rate 126.9 mL/min (90-130); Glucose 223 mg/dL (65-115); Osmolality Calculated 285 mOsm/kg (285-295); Potassium 4.7 mmol/L (3.5-5.1); Sodium 133 mmol/L (136-145); Total Bilirubin 0.6 mg/dL (0.15-1.2); Total Protein 7.9 g/dL (6.6-8.7)
[2023-07-25 14:18] LABS: Slide Review Slide Review Perform
[2023-07-25] MEDS: iohexol 350 mg/mL 500 mL Btl (per mL) IV (14:21)
--- NOTE | 2023-07-25 15:22 | USR_ITS ---
PROCEDURE INFORMATION: Exam: US Retroperitoneal; Complete; Kidneys and Bladder Exam date and time: 07/25/2023 4:34 PM Age: 37 years old Clinical indication: Abnormal findings; Abnormal radiologic finding of the abdomen; Radiologic exam and body structure: CT kidney left; Additional info: Cystic lesion of the kidney. Radiology recommends evaluatio TECHNIQUE: Imaging protocol: Real-time ultrasound of the retroperitoneum with image documentation. Complete exam focused on the kidneys and bladder. COMPARISON: US gall bladder [id number] 11/19/2020 2:34 AM FINDINGS: Right kidney: Normal. No stones. No hydronephrosis. The right kidney measures 10.7 cm by 5.1 cm by 4.8 cm. Left kidney: The exophytic lesion from the lateral left kidney is not cystic by ultrasound. Therefore, it is presumed to be solid. By ultrasound it measures 2.1 cm x 2.2 cm by 2.2 cm. This should be considered neoplasm until proven otherwise. This can be further evaluated with multiphase CT scanning or contrast-enhanced MRI. Otherwise, the left kidney is normal measuring 12 cm in length. Urinary bladder: Unremarkable. US/US renal BI* [id number] IMPRESSION: 1. The left renal lesion in question appears to be solid measuring 2.1 cm x 2.2 cm by 2.2 cm. Therefore, it should be considered renal cell carcinoma until proven otherwise. 2. Normal right kidney and unremarkable urinary bladder.
[2023-07-25 15:30] LABS: Add Urine Culture? No; Bacteria Urine TRACE /hpf; Bilirubin Urine Neg (Negative); Blood Urine Neg (Negative); Glucose Urine UA Norm (Normal); Ketones Urine Negative (Negative); Leukocyte Esterase Urine Negative (Negative); Nitrate Urine Negative (Negative); Protein Urine Neg (Negative); Urine Appearance Clear (CLEAR); Urine Color Yellow (Yellow); Urobilinogen Urine Norm (Negative); WBC Urine RARE /hpf (0-5); pH Urine 6 (5-7)
--- NOTE | 2023-07-25 15:33 | PC.PHAR ---
PT IS [facility]. PT DOES HAVE HIS MEDICATION LIST WITH HIM. 07/25/23
[2023-07-25 15:38] LABS: Reflex Lactate Order REFLEX LACTIC ORDERD
[2023-07-25 16:09] VITALS: PULSE 128; O2SAT 94
[2023-07-25 17:53] VITALS: PULSE 128; O2SAT 94
[2023-07-25 18:11] LABS: Lactic Acid level (Lactate) 1.8 mmol/L (0.5-2.2)
== END 2023-07-25 17:55 | disposition home or self-care (01) ==
PROVIDERS: Emergency Provider Emergency Medicine
DX: N28.89 Other specified disorders of kidney and ureter (principal); R10.32 Left lower quadrant pain; I10 Essential (primary) hypertension; F17.210 Nicotine dependence, cigarettes, uncomplicated
CPT/HCPCS: 36415; 74022; 74177; 76770; 80053; 81001; 83605; 85025; 86140; 99285; Q9967